=== PATIENT | male | born 1945 | race Caucasian/White ===

== ENCOUNTER 2016-11-05 00:25 | Emergency (ER) | payer OTHER ==
[~2016-11-05] VITALS: Ht 162.6 cm; Wt 106.6 kg
--- NOTE | ~2016-11-05 | EKG ---
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 : 1945 Requested By: Rosemary Fitzgerald Order Number: [id number] MD: Raul Hanley Measurements Intervals [place] Rate: 75 P: 16 PA: 260 QRS: 16 QRSD: 98 T: 37 QT: 373 QTc: 417 Interpretive Statements Sinus rhythm Prolonged PA interval Early R wave progression Baseline wander in lead(s) III,aVF No previous ECG available for comparison Electronically Signed On 11-06-2016 8:27:48 CDT by Raul Hanley [email or web address] <ELECTRONICALLY SIGNED> By: Raul Hanley MD, [facility] 11/06/16 0827 D: 04/129 013 Raul Hanley MD, FACC /EPI
[~2016-11-05 00:25] MED LIST: ADULT LOW DOSE81 MG PO; ALDACTONE50 MG PO; ALLEGRA180 MG PO; ALLOPURINOL 30300 M3 PO; AMARYL2 MG PO; ATORVASTATIN CA40 MG PO; BYDUREON P2 MG/0.65 SQ; BYETTA PEN 11 PENINJ SUBQ; BYETTA PEN 51 PENIN1 SC; BYETTA PEN 51 PENIN1 SUBQ; C-500500 MG PO; CALCIUM 500 +1 EAC5 PO; CENTRUM MULTIV1 EACH PO; COZAAR 25 MG TA25 MG PO; COZAAR 50 MG TA50 M1 PO; DELTASONE20 MG PO; DIPHENHIST50 MG PO; FAMOTIDINE20 MG PO; FISH OIL 1,0001 EAC7 PO; FISHOIL; FLEXERIL PO; FLONASE; FLONASE16 GM NASAL; GLUCOPHAGE1000 MG PO; HUMULIN N100 UNIT/1 SQ; HYDROCHLOROTHIA25 M2 PO; IBUPROFEN 800800 MG PO; INDERAL LA120 M1 PO; INDERAL80 MG PO; IRON18 M1 PO; LISINOPRIL20 MG PO; MAGNES; MAGOX 400400 MG PO; MIRAPEX 0.250.25 M1 PO; MOBIC15 MG PO; NIASPAN 500 MG500 M1 PO; NIASPAN ER 101000 M1 PO; PEPCID20 MG PO; PRAMOSONE 1%28.4 GM TP; PRAMOSONE TP; PREDNISONE50 MG PO; PRILOSEC 20 MG20 MG PO; PROPRANOLOL 1010 MG PO; PROTONIX40 M1 PO; SIMVASTATIN40 MG PO; TRAMADOL 50 MG50 MG PO; VITAMIN B-6100 MG PO; VITAMIN C100 M1 PO; VITAMIN D 11000 UNIT PO; VITAMIN D1000 UNI1 PO; VITAMIN D31000 UNI2 PO; VITAMINC500 PO; ZANAFLEX2 M1 PO; [UNRECOGNIZED DRUG - OTHER] TP
[2016-11-05] MEDS ORDERED: VITAMIN B12 SUBLING (01:04)
[2016-11-05] MEDS ORDERED: NEILMED SINUS R1 KIT NASAL (01:05)
[2016-11-05] MEDS ORDERED: PROBIOTIC1 EAC1 (01:07)
[2016-11-05] MEDS ORDERED: NEURONTIN 300300 M1 (01:07)
[2016-11-05] MEDS ORDERED: GAVISCON LIQUI355 ML (01:08)
[2016-11-05] MEDS ORDERED: HYDROCODON-ACE1 EAC7 PO (01:09)
[2016-11-05] MEDS ORDERED: APAP500 (01:09)
[2016-11-05 02:34] LABS: ABSOLUTE NEUTROPHILS 8.1 thou/uL (1.4-8.2); BASOPHILS 0.4 % (0.0-2.0); EOSINOPHILS 3.2 % (0.0-3.0); HEMOGLOBIN 11.8 gm/dL (14.0-18.0); LYMPHOCYTES 12.8 % (24.0-44.0); MCH 29.8 pg (26.0-34.0); MCHC 33.8 g/dL (28.0-37.0); MCV 88.2 fL (80.0-100.0); MONOCYTES 8.5 % (1.0-8.0); PLATELET COUNT 177 thou/uL (150-400); POLYS 75.1 % (36.0-66.0); RBC 3.96 mil/uL (4.50-6.00); RDW 14.4 % (10.5-14.5); WBC 10.7 thou/uL (4.0-11.0)
[2016-11-05 02:42] LABS: MANUAL DIFF NO
[2016-11-05 02:44] LABS: URINE BILIRUBIN NEGATIVE (Negative); URINE BLOOD NEGATIVE (Negative); URINE COLOR YELLOW; URINE GLUCOSE-RANDOM* NEGATIVE (Negative); URINE KETONES TRACE (Negative); URINE LEUKOCYTES-REFLEX NEGATIVE (Negative); URINE PROTEIN (DIPSTICK) NEGATIVE (Negative); URINE UROBILINOGEN 0.2 E.U./dl (0.2-1.0)
[2016-11-05 02:47] LABS: CALCIUM 7.9 mg/dL (8.5-10.1); CREATININE 1.3 mg/dL (0.7-1.3); POTASSIUM 4.4 mmol/L (3.5-5.1)
[2016-11-05 02:53] LABS: ALBUMIN 2.6 g/dL (3.4-5.0); TOTAL BILIRUBIN 0.5 mg/dL (<0.1-1.0)
== END 2016-11-05 06:47 | disposition home or self-care (01) ==
LOC: ER 00:25
PROVIDERS: Emergency Medicine
DX: K59.00 Constipation, unspecified (principal); E11.9 Type 2 diabetes mellitus without complications; G25.81 Restless legs syndrome; Z90.89 Acquired absence of other organs; Z85.828 Personal history of other malignant neoplasm of skin; Z88.1 Allergy status to other antibiotic agents; Z88.0 Allergy status to penicillin; Z87.891 Personal history of nicotine dependence

== ENCOUNTER 2016-11-05 08:52 | Inpatient (IN) | payer OTHER ==
[~2016-11-05] VITALS: Ht 162.6 cm; Wt 106.6 kg
--- NOTE | ~2016-11-05 | HC ---
[facility] [place] [address] CONSULTATION Name: FELICENATI Vargas Room #: 426-P [facility] IN M.R.#: [id number] Admission: 11/05/16 Attend Phys: Devon Lopez MD Discharge: Date of : 47 Report #: [id number] THIS REPORT FOR: //name// CC: FAM unknown Devon Lopez INFECTIOUS DISEASE CONSULTATION REASON FOR CONSULTATION: I was asked to evaluate concerning abdominal wall infection and pain following and umbilical hernia repair. HISTORY OF PRESENT ILLNESS: The patient is a 71-year-old with hypertension, diabetes, morbid obesity, four days ago underwent umbilical herniorrhaphy, laparoscopic by Dr. Deutsch, [facility]. He developed inability to pass stool and presented to the Emergency Room on November 04. CT scan showed evidence of inflammation and gas in the abdominal wall with fluid collection along with some gas in the ascending colon. For this, he was told to return for further evaluation. The patient has been seen by General Surgery. He was placed on meropenem and metronidazole. He denies any fever, chills or sweats. Has diffuse abdominal wall pain mostly over the periumbilical region in the right lower quadrant. He did have some stool output after an enema. He is currently pass gas, but has had no other spontaneous bowel movements. His appetite is reasonable. He has had small amount of sputum production with intermittent cough. He has chronic sinus disease. No change in that. No dysuria or frequency. ALLERGIES: PENICILLIN with hives, LEVAQUIN with arthritis and myositis. MEDICATIONS: As noted on his MAR, which was reviewed. It is noted that he is on meropenem and metronidazole. PAST MEDICAL HISTORY: Diabetes, gout, restless leg syndrome, chronic low back pain, basal cell carcinoma, right total knee arthroplasty, hernia surgery, right fifth metatarsal fracture, hypertension, diabetes, and hyperlipidemia. FAMILY HISTORY: Noncontributory. SOCIAL HISTORY: Smokes cigarettes. Minimal alcohol intake. REVIEW OF SYSTEMS: Noted above with no additions. PHYSICAL EXAMINATION: VITAL SIGNS: He is afebrile, maximum temperature today was 99.3, hemodynamically stable. GENERAL: He is alert and cooperative and pleasant, in no acute distress. SKIN: Unremarkable other than what will be noted on his abdominal examination. LYMPH: Unremarkable. [address] [address] CONSULTATION Name: NATI VIVEROS Room #: 426-P [facility] IN ..#: [id number] Admission: 11/05/16 Attend Phys: Devon Lopez MD Discharge: Date of : 47 Report #: [id number] EYES: Unremarkable. LUNGS: Were clear. HEART: Regular without murmur. ABDOMEN: Obese with a large abdominal pannus. He had erythroderma across his abdomen. He had ecchymosis around his periumbilical incision with ecchymosis and some fluctuance in the periumbilical region. Tenderness is mostly in the periumbilical down to the right lower quadrant. No appreciable mass is otherwise identified, no hepatosplenomegaly. EXTREMITIES: Unremarkable. LABORATORY STUDIES: Hemoglobin 10.8, WBC 8.9. Differential unremarkable, platelet count 195,000. Creatinine 1. Chest x-ray small perihilar infiltrate. CT scan of the abdomen and pelvis showed some pneumatosis in the ascending colon, extensive diverticulosis, air fluid collection in the mid periumbilical abdominal wall, 6.5 x 6.7 cm. There was some air in this. Surrounding inflammatory change. IMPRESSION: Postoperative day #4 from a laparoscopic ventral hernia repair with evidence of an ileus. He has got pneumatosis in the right colon, unclear as to the etiology of this. Has a fluid collection in the anterior abdomen in the area of his mesh, which I suspect is more of hematoma and seroma. Along with this has a diffuse cellulitis of the abdominal wall. PLAN: Would recommend continuing IV antibiotic therapy another 24 hours and see how this thing calms down. With his penicillin allergy and potential for nosocomial organisms, I will continue with meropenem and screen for MRSA. We will see how he does over the next 24 hours before outpatient recommendations. <ELECTRONICALLY SIGNED> By: Cooper Hilton MD 11/07/16 1729 1255 2254 Cooper Hilton MD /nt
--- NOTE | ~2016-11-05 | HC ---
[facility] [place] [address] CONSULTATION Name: FELICENATI Room #: 426-P [facility] IN .R.#: [id number] Admission: 11/05/16 Attend Phys: Devon Lopez MD Discharge: Date of : 47 Report #: [id number] THIS REPORT FOR: //name// CC: FAM unknown Devon Lopez DATE OF SERVICE: 11/05/2016 CONSULTATION: Infectious diseases. HISTORY OF PRESENT ILLNESS: This patient is a 71-year-old gentleman who presents to the hospital on November 05 complaining of abdominal pain. The patient underwent repair of an umbilical hernia on November 02 at [facility]. He came to the ER on the complaining of abdominal pain. This was a much closer facility than [facility]. He was released from the emergency room, but the radiologist over-read the CT scan, suggesting inflammation and gas in the abdominal wall. The patient was asked to return to the ER, where he was noted he had developed diffuse cellulitis of the abdominal wall. The patient was admitted and infectious disease consultation was requested. The patient was not complaining of fevers, chills or sweats. No nausea, vomiting or trouble with his bowels. He did note abdominal wall tenderness and difficulty in moving because of pain in the surgical sites. There has been no dehiscence or drainage. PAST MEDICAL HISTORY: Past history is significant for diabetes with hypertension and hyperlipidemia. The patient is morbidly obese. Other diagnoses include gout and restless leg syndrome. PAST SURGICAL HISTORY: Includes the umbilical hernia repair as well as the right total knee replacement. ALLERGIES: The patient notes allergy to PENICILLIN and LEVAQUIN. He is not sure if he has had any adverse reactions to cephalosporins. MEDICATION RECONCILIATION: Allopurinol 300 mg daily, lactobacillus one capsule daily, enteric-coated aspirin 81 mg daily, losartan 100 mg daily, propranolol LA 120 mg daily, atorvastatin 40 mg daily, pantoprazole 40 mg daily, gabapentin 600 mg at bedtime, pramipexole 1 mg daily, insulin sliding scale, DuoNeb inhalation q.i.d., p.r.n. morphine, hydrocodone, MiraLax, Zofran, fentanyl and has now been started on meropenem and vancomycin. FAMILY HISTORY: Noncontributory. SOCIAL HISTORY: The patient is . He does lives at home with his . He does smoke cigarettes. He denies use of alcohol or drugs. 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 REVIEW OF SYSTEMS: GENERAL: Negative for fevers, chills or sweats. Positive for weakness and malaise. ENT: No headache, sinus congestion, sore throat or trouble swallowing. CHEST: The patient denies cough, chest pain or shortness of breath. GASTROINTESTINAL: The patient denies nausea, vomiting, diarrhea or constipation. Positive for abdominal pain and tenderness. EXTREMITIES: No complaints. PHYSICAL EXAMINATION: GENERAL: On examination, the appears his stated age, alert, oriented, comfortable, not in any distress. VITAL SIGNS: Normal. The patient is afebrile. SKIN: Shows diffuse erythema over the atrial abdominal wall. This is about a 20 x 30 cm patch of light pink patchy erythroderma with some mild induration. Laparoscopic wounds are intact. There is still slight swelling of the umbilicus, about the size of a golf ball. There is no drainage. The area is mildly tender throughout, without any focal tenderness. No fluctuance. ENT EXAMINATION: Negative. HEART: Heart sounds normal. LUNGS: Clear. ABDOMEN: Belly otherwise soft, without deep tenderness. No rebound. No guarding. No organomegaly. EXTREMITIES: Unremarkable. LABORATORY DATA: White count 10.8, hemoglobin 11.8 and platelet 189,000. Electrolytes are normal. BUN 26, creatinine 1.2 and glucose 97. The patient reports that is A1c is generally less than 6, most recently 5.4. Lactate is normal. Liver function tests are normal. Urinalysis is negative. Chest x-rays suggest possible right hilar infiltrate. IMPRESSION: Postoperative cellulitis with possible gas in the tissues. I would recommend very aggressive treatment. Even though the patient clinically does not look very toxic, we will start with vancomycin plus meropenem. We will obtain surgical consultation. The patient may want to transfer back to [facility] to be with his primary care surgeon. I would like to do a swab of his nares for MRSA. A warm pad to the belly may accelerate healing and improve circulation. At some point, we want to do followup CBC and followup chest x-ray. I appreciate the opportunity to offer input in the care of the patient. Dr. Hilton will return tomorrow for additional infectious disease followup. [facility] [address] [place] [address] CONSULTATION Name: NATI VIVEROS Room #: 426-P [facility] IN .R.#: [id number] Admission: 11/05/16 Attend Phys: Devon Lopez MD Discharge: Date of : 47 Report #: [id number] Thank you for this consultation. By: 0900 1316 Bernard Richter MD /nt
--- NOTE | ~2016-11-05 | EKG ---
[address] [place] [address] ELECTROCARDIOGRAM REPORT Name: NATI VIVEROS [facility] [id number] Admission: 11/05/16 Attend Phys: Discharge: Date of : 47 Report #: [id number] THIS REPORT FOR: //name// 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
[~2016-11-05 08:52] MED LIST changes: +APAP500; +GAVISCON LIQUI355 ML; +HYDROCODON-ACE1 EAC7 PO; +NEILMED SINUS R1 KIT NASAL; +NEURONTIN 300300 M1; +PROBIOTIC1 EAC1; +VITAMIN B12 SUBLING
[2016-11-05 08:53] VITALS: BP 125/52
[2016-11-05 10:14] LABS: ABSOLUTE NEUTROPHILS 8.4 thou/uL (1.4-8.2); BASOPHILS 0.4 % (0.0-2.0); EOSINOPHILS 3.8 % (0.0-3.0); HEMATOCRIT 34.8 % (42.0-52.0); HEMOGLOBIN 11.8 gm/dL (14.0-18.0); LYMPHOCYTES 10.5 % (24.0-44.0); MCV 88.3 fL (80.0-100.0); PLATELET COUNT 189 thou/uL (150-400); POLYS 77.3 % (36.0-66.0); RBC 3.94 mil/uL (4.50-6.00); RDW 14.3 % (10.5-14.5); WBC 10.8 thou/uL (4.0-11.0)
[2016-11-05 10:15] LABS: MANUAL DIFF NO
[2016-11-05 10:24] LABS: ANION GAP 9 mmol/L (7-16); BUN 26 mg/dL (7-18); CALCIUM 8.4 mg/dL (8.5-10.1); CHLORIDE 99 mmol/L (98-107); CO2 22 mmol/L (21-32); CREATININE 1.2 mg/dL (0.7-1.3); GLUCOSE 97 mg/dL (74-106); POTASSIUM 4.6 mmol/L (3.5-5.1); SODIUM 130 mmol/L (136-145)
[2016-11-05 10:35] LABS: NT-PRO BRAIN NAT PEPTIDE 234 pg/mL (<300); TROPONIN-I < 0.04 ng/mL (<0.04-0.07)
[2016-11-05 11:59] VITALS: BP 125/58
[2016-11-05 11:59] LABS: URINE BILIRUBIN NEGATIVE (Negative); URINE BLOOD NEGATIVE (Negative); URINE COLOR YELLOW; URINE GLUCOSE-RANDOM* NEGATIVE (Negative); URINE KETONES TRACE (Negative); URINE NITRITE NEGATIVE (Negative); URINE PROTEIN (DIPSTICK) NEGATIVE (Negative); URINE SPECIFIC GRAVITY <= 1.005 (1.003-1.035); URINE UROBILINOGEN 0.2 E.U./dl (0.2-1.0)
[2016-11-05 13:35] VITALS: BP 117/51
[2016-11-05 16:36] VITALS: BP 107/54
[2016-11-05 21:43] VITALS: BP 102/60
[2016-11-06 03:50] VITALS: BP 117/64
[2016-11-06 05:24] LABS: ABSOLUTE NEUTROPHILS 6.4 thou/uL (1.4-8.2); BASOPHILS 0.7 % (0.0-2.0); EOSINOPHILS 4.6 % (0.0-3.0); HEMATOCRIT 31.6 % (42.0-52.0); HEMOGLOBIN 10.8 gm/dL (14.0-18.0); LYMPHOCYTES 13.6 % (24.0-44.0); MCHC 34.1 g/dL (28.0-37.0); MONOCYTES 9.4 % (1.0-8.0); PLATELET COUNT 195 thou/uL (150-400); POLYS 71.7 % (36.0-66.0); RBC 3.59 mil/uL (4.50-6.00); RDW 14.3 % (10.5-14.5); WBC 8.9 thou/uL (4.0-11.0)
[2016-11-06 05:33] LABS: MANUAL DIFF NO
[2016-11-06 05:38] LABS: CALCIUM 7.5 mg/dL (8.5-10.1); POTASSIUM 4.5 mmol/L (3.5-5.1)
[2016-11-06 07:30] VITALS: BP 117/56
[2016-11-06 15:15] VITALS: BP 114/59
[2016-11-06 20:00] VITALS: BP 121/61
[2016-11-07 04:19] VITALS: BP 133/65
[2016-11-07 05:32] LABS: HEMATOCRIT 31.6 % (42.0-52.0); HEMOGLOBIN 10.8 gm/dL (14.0-18.0); MCH 29.9 pg (26.0-34.0); MCHC 34.2 g/dL (28.0-37.0); MCV 87.3 fL (80.0-100.0); RBC 3.61 mil/uL (4.50-6.00); RDW 14.2 % (10.5-14.5); WBC 7.8 thou/uL (4.0-11.0)
[2016-11-07 05:45] LABS: CREATININE 0.9 mg/dL (0.7-1.3); POTASSIUM 4.4 mmol/L (3.5-5.1)
[2016-11-07 07:43] VITALS: BP 130/57
[2016-11-07 16:08] VITALS: BP 140/70
[2016-11-07 20:47] VITALS: BP 135/75
[2016-11-08 04:00] VITALS: BP 135/67
[2016-11-08 07:10] VITALS: BP 134/70
[2016-11-08] MEDS ORDERED: CEFDINIR300 MG PO (12:16)
[2016-11-08] MEDS ORDERED: FLAGYL500 MG PO (12:16)
[2016-11-08 12:27] VITALS: BP 134/70
== END 2016-11-08 12:50 | disposition home or self-care (01) | DRG 862 ==
LOC: ER 08:52 → 4E 11:13 → EROBS 11:13 → 4E 11:30
PROVIDERS: Emergency Medicine; Hospitalist
DX: T81.4XXA Infection following a procedure, initial encounter (principal); J18.9 Pneumonia, unspecified organism; L03.311 Cellulitis of abdominal wall; Z68.41 Body mass index [BMI] 40.0-44.9, adult; I10 Essential (primary) hypertension; E78.5 Hyperlipidemia, unspecified; E11.9 Type 2 diabetes mellitus without complications; E66.01 Morbid (severe) obesity due to excess calories; K59.00 Constipation, unspecified; K63.89 Other specified diseases of intestine; M10.9 Gout, unspecified; G25.81 Restless legs syndrome; G89.29 Other chronic pain; M54.5 Low back pain; F17.210 Nicotine dependence, cigarettes, uncomplicated; Z96.651 Presence of right artificial knee joint; Z88.1 Allergy status to other antibiotic agents; Z88.0 Allergy status to penicillin; Y83.8 Other surgical procedures as the cause of abnormal reaction of the patient, or of later complication, without mention of misadventure at the time of the procedure; Y92.89 Other specified places as the place of occurrence of the external cause
CPT/HCPCS: 10183

== ENCOUNTER 2018-10-01 21:28 | Inpatient (IN) | payer OTHER ==
[~2018-10-01] VITALS: Ht 162.6 cm; Wt 110.7 kg
[~2018-10-01 21:28] MED LIST changes: -APAP500; +CEFDINIR300 MG PO; +FLAGYL500 MG PO; +TYLENOL EXTRA500 MG PO
[2018-10-01 21:43] VITALS: BP 184/115
[2018-10-01 22:06] LABS: ABSOLUTE NEUTROPHILS 8.4 thou/uL (1.4-8.2); BASOPHILS 0.7 % (0.0-2.0); HEMATOCRIT 40.5 % (42.0-52.0); HEMOGLOBIN 13.5 gm/dL (14.0-18.0); LYMPHOCYTES 11.5 % (24.0-44.0); MCH 29.6 pg (26.0-34.0); MCHC 33.3 g/dL (28.0-37.0); MCV 88.8 fL (80.0-100.0); MONOCYTES 3.7 % (1.0-8.0); PLATELET COUNT 202 thou/uL (150-400); POLYS 82.1 % (36.0-66.0); RBC 4.56 mil/uL (4.50-6.00); RDW 14.9 % (10.5-14.5); WBC 10.3 thou/uL (4.0-11.0)
[2018-10-01 22:13] LABS: CALCIUM 8.9 mg/dL (8.5-10.1); CREATININE 1.3 mg/dL (0.7-1.3); POTASSIUM 3.7 mmol/L (3.5-5.1)
[2018-10-01 22:19] LABS: ALBUMIN 3.4 g/dL (3.4-5.0); DIRECT BILIRUBIN 0.1 mg/dL (<0.1-0.3); TOTAL BILIRUBIN 0.4 mg/dL (<0.1-1.0); TOTAL PROTEIN 7.3 g/dL (6.4-8.2)
[2018-10-02] VITALS (8 sets, daily range): BP systolic 81–987; BP diastolic 44–115
[2018-10-02 00:27] LABS: URINE BILIRUBIN NEGATIVE (Negative); URINE BLOOD 2+ (Negative); URINE CLARITY CLEAR; URINE COLOR YELLOW; URINE GLUCOSE-RANDOM* NEGATIVE (Negative); URINE KETONES TRACE (Negative); URINE LEUKOCYTES-REFLEX NEGATIVE (Negative); URINE NITRITE-REFLEX NEGATIVE (Negative); URINE PROTEIN (DIPSTICK) 3+ (Negative); URINE SPECIFIC GRAVITY >= 1.030 (1.005-1.035); URINE UROBILINOGEN 0.2 E.U./dl (0.2-1.0)
[2018-10-02 00:35] LABS: BACTERIA-REFLEX 1-9 Few /HPF (None Seen); SQUAMOUS 4-10 Moderate /LPF (0-3); URINE RBC 3-10 Few /HPF (0-2); URINE WBC-REFLEX 0-5 Rare /HPF (0-5)
[2018-10-02 00:36] LABS: CASTS None Seen /LPF (None Seen); CRYSTALS None Seen /LPF (None Seen); MUCUS 0-3 Light strn/LPF (None Seen)
--- NOTE | 2018-10-02 02:23 | NUR ---
Pt. admitted to the unit from the emergency room accompanied by staff. He is alert and oriented. Admission assessment and history is completed. He is requesting his oxygen to be off. Oxygen taken off and O2 saturation was 96% on room air after o2 off for about a half hour. He offers no c/o shortness of air. He is steady up on his feet.
[2018-10-02 06:26] LABS: CALCIUM 7.9 mg/dL (8.5-10.1); CREATININE 1.7 mg/dL (0.7-1.3); POTASSIUM 3.2 mmol/L (3.5-5.1)
--- NOTE | 2018-10-02 08:08 | EKG ---
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1945 Requested By: Mahendra Molina Order Number: [id number] MD: Keith Del Toro Measurements Intervals [place] Rate: 116 P: 46 HI: 196 QRS: 8 QRSD: 83 T: 39 QT: 327 QTc: 455 Interpretive Statements Sinus tachycardia Borderline T wave abnormalities Compared to ECG 11/05/2016 09:35:34 T-wave abnormality now present Sinus rhythm no longer present First degree AV block no longer present Electronically Signed On 10-02-2018 8:08:33 CDT by Keith Del Toro [email or web address] ��������������������������������������������� <ELECTRONICALLY SIGNED> ���������������������������������������� By: Keith Del Toro MD ��������������������������������������������� 10/02/1808 06 06 Keith Del Toro MD /EPI
--- NOTE | 2018-10-02 10:38 | NUR ---
PT AMB IN HALLWAY AT A FAST STEADY CLIP IN SPITE OF SOUNDING SOA (HIS NORM LAST FEW WEEKS PER PT), LUNG SOUNDS DIMINISHED. A&0X4 AND B/P'S STILL LOW, ENCOURAGED W/HYDRATION AND INCREASED FLUIDS PER DR. DOMINGUEZ
[2018-10-02] MEDS ORDERED: NEURONTIN600 MG PO (11:34)
[2018-10-02] MEDS ORDERED: GLUCOPHAGE XR500 MG PO (11:38)
[2018-10-02] MEDS ORDERED: MIRAPEX0.5 MG PO (11:40)
[2018-10-02] MEDS ORDERED: INDERAL XL80 MG PO (11:42)
[2018-10-02] MEDS ORDERED: HYDRALAZINE 2525 MG PO (11:44)
[2018-10-02] MEDS ORDERED: SPIRONOLACTONE25 M1 PO (11:45)
[2018-10-02] MEDS ORDERED: LASIX 20 MG TAB20 MG PO (11:46)
[2018-10-02] MEDS ORDERED: CARDURA2 MG PO (11:46)
[2018-10-02] MEDS ORDERED: SINGULAIR 10 MG10 M1 PO (11:46)
[2018-10-02] MEDS ORDERED: FLONASE 0.05%50 MCG NASAL ×2 (11:47)
[2018-10-02] MEDS ORDERED: ALPHA LIPOIC A600 M1 PO (13:07)
[2018-10-02] MEDS ORDERED: METAMUCIL POWD174 GM PO (13:09)
[2018-10-02] MEDS ORDERED: SILDENAFIL20 MG PO (13:10)
--- NOTE | 2018-10-03 02:06 | NUR ---
ASSUMED CARE AT 1900. AXOX4. ON IVF FOR HYDRATION. GENERALIZED BODY PAIN TX WITH TYLENOL. BP STABLE. GOOD URINE OUTPUT. NO S/S ACUTE DISTRESS NOTED OR REPORTED AT THIS TIME. WILL CONT TO MONITOR FOR ANY CHANGES IN CONDITION.
[2018-10-03 04:01] VITALS: BP 124/60
[2018-10-03 06:02] LABS: CALCIUM 8.1 mg/dL (8.5-10.1); CREATININE 1.7 mg/dL (0.7-1.3); MAGNESIUM 1.5 mg/dL (1.8-2.4)
[2018-10-03 06:07] LABS: POTASSIUM 4.5 mmol/L (3.5-5.1)
[2018-10-03 08:32] VITALS: BP 146/64
[2018-10-03 11:14] VITALS: BP 146/64
[2018-10-03 11:18] VITALS: BP 146/64
== END 2018-10-03 11:45 | disposition home or self-care (01) | DRG 871 ==
LOC: ER 21:28 → EROBS 10-02 01:14 → 4W 10-02 01:14
PROVIDERS: Emergency Medicine; Nurse Practitioner Family; ADMIT Hospitalist
DX: A41.9 Sepsis, unspecified organism (principal); J96.20 Acute and chronic respiratory failure, unspecified whether with hypoxia or hypercapnia; N17.9 Acute kidney failure, unspecified; B34.9 Viral infection, unspecified; M10.9 Gout, unspecified; G25.81 Restless legs syndrome; G89.29 Other chronic pain; M54.5 Low back pain; K08.409 Partial loss of teeth, unspecified cause, unspecified class; Z96.651 Presence of right artificial knee joint; K21.9 Gastro-esophageal reflux disease without esophagitis; N40.0 Benign prostatic hyperplasia without lower urinary tract symptoms; N18.9 Chronic kidney disease, unspecified; E11.22 Type 2 diabetes mellitus with diabetic chronic kidney disease; E83.42 Hypomagnesemia; Z88.1 Allergy status to other antibiotic agents; Z88.0 Allergy status to penicillin; Z87.891 Personal history of nicotine dependence
CPT/HCPCS: 10045